=== PATIENT | female | born 1950 | race American Indian/Alaskan Native ===

== ENCOUNTER 2021-01-16 11:36 | Observation (INO) | payer MEDICARE ==
--- NOTE | 2021-01-16 12:48 | XRay Report ---
CHEST 1 VIEW INDICATION: cough. COMPARISON: None FINDINGS: Support devices: None. Heart: Within normal limits. Lungs/Pleura: No acute air space or interstitial disease. Additional findings: None. IMPRESSION: No acute findings. Signer Name: Maldonado Bowers Jr, MD Signed: 01/16/2021 12:44 PM Workstation Name: [id number]
[2021-01-16 12:58] LABS: Mucus,Urine FEW /HPF
[2021-01-16 13:10] LABS: Bilirubin,Urine NEG (Negative); Blood,Urine SM (Negative); Color,Urine Yellow (Yellow)
[2021-01-16 13:15] LABS: Basophils % (Auto) 0.6 % (0.0-1.8); Hematocrit 38.8 % (30.3-42.9); Lymphocytes # (Auto) 0.4 K/mm3 (1.2-5.4); Lymphocytes % (Auto) 5.6 % (13.4-35.0); Mean Corpuscular HGB Conc 33 % (30-34); Mean Corpuscular Volume 86 fl (79-97); Monocytes # (Auto) 0.5 K/mm3 (0.0-0.8); Monocytes % (Auto) 7.6 % (0.0-7.3); Platelet Count 156 K/mm3 (140-440); Red Blood Count 4.51 M/mm3 (3.65-5.03); Red Cell Distribution Width 13.7 % (13.2-15.2)
--- NOTE | 2021-01-16 13:35 | Emergency Department Report ---
ED General Adult HPI - General Chief complaint: Upper Respiratory Infection Stated complaint: BODY ACHES Time Seen by Provider: 01/16/21 12:03 Source: EMS Mode of arrival: Stretcher Limitations: No Limitations - History of Present Illness Initial comments: 70-year-old female, history of hypertension, diabetes, presents to ED with flulike illness. Patient reports 1 week history of body aches, cough, fever, nausea and vomiting, loss of smell and taste. Patient reports she had a brief episode of shortness of breath last night which has resolved. Patient has not been tested for COVID-19. Patient has no known contacts with anyone who is tested positive for COVID-19. However, patient states she lives with her daughter and her daughter has been having body aches as well. Patient has not had her Covid vaccine yet. -: week(s) (1) Severity scale (0 -10): 10 Quality: aching Consistency: constant Improves with: none Worsens with: none Associated Symptoms: cough, fever/chills, nausea/vomiting, shortness of breath, weakness. denies: chest pain - Related Data Home Medications Medication Instructions Recorded Confirmed Last Taken Lisinopril/Hydrochlorothiazide 1 tab PO QDAY 12/27/13 01/16/21 Unknown [Zestoretic 20-12.5 mg] Meloxicam 7.5 mg PO QDAY 12/27/13 01/16/21 Unknown Pantoprazole [Protonix TAB] 40 mg PO QDAY 12/27/13 01/16/21 Unknown amLODIPine 5 mg PO DAILY 12/27/13 01/16/21 Unknown atenoloL [Tenormin] 50 mg PO DAILY 12/27/13 01/16/21 Unknown AtorvaSTATin [Lipitor] 20 mg PO QHS 01/16/21 01/16/21 Unknown Metformin HCl [Glucophage] 1,000 mg PO DAILY 01/16/21 01/16/21 Unknown tiZANidine [Zanaflex 4mg TAB] 4 mg PO BID 01/16/21 01/16/21 Unknown traMADoL [Ultram] 50 mg PO DAILY 01/16/21 01/16/21 Unknown Allergies Allergy/AdvReac Type Severity Reaction Status Date / Time No Known Allergies Allergy Verified 01/16/21 12:17 ED Review of Systems ROS: Stated complaint: BODY ACHES Other details as noted in HPI Comment: All other systems reviewed and negative Constitutional: chills, fever Respiratory: cough Cardiovascular: denies: chest pain Gastrointestinal: nausea, vomiting. denies: diarrhea Musculoskeletal: myalgia ED Past Medical Hx - Past Medical History Hx Hypertension: Yes Hx Diabetes: Yes Additional medical history: hernia, high cholesterol - Surgical History Additional Surgical History: abdominal surgery - Social History Smoking Status: Never Smoker - Medications Home Medications: Home Medications Medication Instructions Recorded Confirmed Last Taken Type Lisinopril/Hydrochlorothiazide 1 tab PO QDAY 12/27/13 01/16/21 Unknown History [Zestoretic 20-12.5 mg] Meloxicam 7.5 mg PO QDAY 12/27/13 01/16/21 Unknown History Pantoprazole [Protonix TAB] 40 mg PO QDAY 12/27/13 01/16/21 Unknown History amLODIPine 5 mg PO DAILY 12/27/13 01/16/21 Unknown History atenoloL [Tenormin] 50 mg PO DAILY 12/27/13 01/16/21 Unknown History AtorvaSTATin [Lipitor] 20 mg PO QHS 01/16/21 01/16/21 Unknown History Metformin HCl [Glucophage] 1,000 mg PO DAILY 01/16/21 01/16/21 Unknown History tiZANidine [Zanaflex 4mg TAB] 4 mg PO BID 01/16/21 01/16/21 Unknown History traMADoL [Ultram] 50 mg PO DAILY 01/16/21 01/16/21 Unknown History ED Physical Exam - General Limitations: No Limitations General appearance: alert, in no apparent distress - Head Head exam: Present: atraumatic, normocephalic - Eye Eye exam: Present: normal appearance, EOMI - ENT ENT exam: Present: mucous membranes moist - Neck Neck exam: Present: normal inspection - Respiratory Respiratory exam: Present: normal lung sounds bilaterally. Absent: respiratory distress - Cardiovascular Cardiovascular Exam: Present: regular rate, normal rhythm - GI/Abdominal GI/Abdominal exam: Present: soft. Absent: distended, tenderness - Extremities Exam Extremities exam: Present: normal inspection - Neurological Exam Neurological exam: Present: alert, oriented X3 - Psychiatric Psychiatric exam: Present: normal affect, normal mood - Skin Skin exam: Present: warm, dry, intact, normal color ED Course Vital Signs 01/16/21 01/16/21 01/16/21 12:05 12:13 12:51 Temperature 99.9 F H Pulse Rate 77 82 Respiratory 16 16 18 Rate Blood Pressure 132/80 131/74 [Left] O2 Sat by Pulse 95 98 96 Oximetry 01/16/21 01/16/21 13:35 14:40 Temperature Pulse Rate 79 82 Respiratory 18 18 Rate Blood Pressure 118/72 121/67 [Left] O2 Sat by Pulse 95 95 Oximetry ED Medical Decision Making - Lab Data Result diagrams: 01/17/21 07:07 01/17/21 07:07 - Radiology Data Radiology results: report reviewed, image reviewed - Medical Decision Making 70-year-old female presents to ED with flulike illness, including nausea and vomiting. Patient has not been tested for COVID-19. Reports sick contact at home. Chest x-ray is negative. Labs show hyponatremia with sodium level of 129. IV fluids given. Patient will be admitted by hospitalist, Dr. Hope, for further management. - Differential Diagnosis COVID-19, electrolyte abnormality, pneumonia, UTI Critical care attestation.: If time is entered above; I have spent that time in minutes in the direct care of this critically ill patient, excluding procedure time. ED Disposition Clinical Impression: Suspected 2019 novel coronavirus infection, Hyponatremia Disposition: [id number] OP ADMIT IP TO THIS HOSP Is pt being admited?: Yes Condition: Stable
[2021-01-16 13:41] LABS: Blood Urea Nitrogen 17 mg/dL (7-17); Calcium 8.6 mg/dL (8.4-10.2); Hemolysis Index 23
[2021-01-16 13:42] LABS: C-Reactive Protein 11.5 mg/dL (0.00-1.30)
[2021-01-16 13:44] LABS: BUN/Creatinine Ratio 28
[2021-01-16 14:25] LABS: Alanine Aminotransferase 16 units/L (7-56); Albumin 3.4 g/dL (3.9-5)
[2021-01-16 14:26] LABS: Bilirubin,Direct < 0.2 mg/dL (0-0.2)
[2021-01-16] MEDS ORDERED: SODIUM CHLORIDE 0.9% 1000 ML 1,000 ML IV ONE (14:27)
--- NOTE | 2021-01-16 14:42 | History and Physical Report ---
History of Present Illness Chief complaint: I feel sick History of present illness: 70 YO Female with HTN, DM, GERD, HLD, OA presents to ED for evaluation. Pt reports "I feel bad". Patient states that she has experienced body aches, dry cough, nausea, several episodes of vomiting, loss of sense of smell, loss of sense of taste, shortness of breath, subjective fever over the past 1 week with persistent symptoms over the same timeframe. EMS notified and upon arrival the patient was found to be in distress and subsequently transported to [facility] for further care and evaluation of the aforementioned symptoms. The patient was seen and evaluated in the emergency department. All lab and imaging studies reviewed. Patient complained of shortness of breath and was found to have a pulse oximetry in the 90s however the patient underwent a 6-minute walk on room air and was found to have dyspnea with increased use of accessory muscles to breathe. The patient was found to have a pulse oximetry of 89% which is consist ent with acute hypoxemic respiratory failure. Patient also found to have urinary tract infection, hyponatremia. Patient admitted to medical floor and initiated on coronavirus protocol. Patient denies chills, chest pain, palpitations, skin rash, trauma, falls. Patient reports recent ill contact with her daughter who has similar symptoms. No prior admission for review. All medication listed at time of admission has been reconciled. Advanced care planning conducted in ED. Past History Past Medical History: arthritis, diabetes, GERD, hypertension, other (See HPI) Past Surgical History: bowel surgery, Other Social history: . denies: smoking, alcohol abuse Family history: diabetes, hypertension Medications and Allergies Allergies Allergy/AdvReac Type Severity Reaction Status Date / Time No Known Allergies Allergy Verified 01/16/21 12:17 Home Medications Medication Instructions Recorded Confirmed Last Taken Type Lisinopril/Hydrochlorothiazide 1 tab PO QDAY 12/27/13 01/16/21 Unknown History [Zestoretic 20-12.5 mg] Meloxicam 7.5 mg PO QDAY 12/27/13 01/16/21 Unknown History Pantoprazole [Protonix TAB] 40 mg PO QDAY 12/27/13 01/16/21 Unknown History amLODIPine 5 mg PO DAILY 12/27/13 01/16/21 Unknown History atenoloL [Tenormin] 50 mg PO DAILY 12/27/13 01/16/21 Unknown History AtorvaSTATin [Lipitor] 20 mg PO QHS 01/16/21 01/16/21 Unknown History tiZANidine [Zanaflex 4mg TAB] 4 mg PO BID 01/16/21 01/16/21 Unknown History traMADoL [Ultram] 50 mg PO DAILY 01/16/21 01/16/21 Unknown History Active Meds: Active Medications Sodium Chloride (Nacl 0.9% 1000 Ml) 1,000 mls @ 999 mls/hr IV BOLUS ONE Stop: 01/16/21 15:27 Last Admin: 01/16/21 14:33 Dose: 999 mls/hr Documented by: Review of Systems Constitutional: fever, fatigue, weakness, malaise Ears, nose, mouth and throat: other (Loss of sense of smell, loss of sense of taste,), no ear pain, no ear discharge, no tinnitis, no decreased hearing, no nose pain, no nasal congestion Breasts: no change in shape, no swelling, no mass Cardiovascular: no chest pain, no orthopnea, no palpitations, no rapid/irregular heart beat, no edema, no syncope Respiratory: cough, shortness of breath, no wheezing, no pleurisy, no pain Gastrointestinal: nausea, vomiting, no abdominal pain, no diarrhea, no constipation, no change in bowel habits Genitourinary Female: no pelvic pain, no flank pain, no dysuria, no urinary frequency, no urgency Rectal: no pain, no incontinence, no bleeding Musculoskeletal: no neck stiffness, no neck pain, no shooting arm pain, no arm numbness/tingling, no low back pain Integumentary: no rash, no pruritis, no redness, no sores, no wounds Neurological: no transient paralysis, no paralysis, no parathesias, no numbness, no tingling, no syncope Psychiatric: no anxiety, no memory loss, no sleep disturbances, no insomnia, no change in libido Endocrine: no cold intolerance, no heat intolerance, no polyphagia, no excessive thirst, no polydipsia, no polyuria, no nocturia, no excessive sweating Hematologic/Lymphatic: no easy bruising, no easy bleeding, no lymphadenopathy Allergic/Immunologic: no urticaria, no allergic rhinitis, no persistent infections, no anaphylaxis Exam - Constitutional Vitals: Temp Pulse Resp BP Pulse Ox 99.9 F H 82 18 121/67 95 01/16/21 12:05 01/16/21 14:40 01/16/21 14:40 01/16/21 14:40 01/16/21 14:40 General appearance: Present: mild distress - EENT Eyes: Present: PERRL ENT: hearing intact, clear oral mucosa - Neck Neck: Present: supple, normal ROM - Respiratory Respiratory effort: labored, stridor Respiratory: bilateral: diminished, rhonchi - Cardiovascular Heart Sounds: Present: S1 & S2. Absent: rub, click - Extremities Extremities: pulses symmetrical, No edema Peripheral Pulses: within normal limits - Abdominal General gastrointestinal: Present: soft, non-tender, non-distended, normal bowel sounds Female genitourinary: Present: normal - Integumentary Integumentary: Present: clear, warm, dry - Musculoskeletal Musculoskeletal: generalized weakness - Psychiatric Psychiatric: appropriate mood/affect, intact judgment & insight - Neurologic Neurologic: CNII-XII intact, moves all extremities Results - Labs CBC & Chem 7: 01/16/21 12:35 01/16/21 12:35 Labs: Abnormal lab results 01/16/21 01/16/21 01/16/21 Range/Units 12:35 12:35 12:35 Lymph % (Auto) 5.6 L (13.4-35.0) % [place] % (Auto) 7.6 H (0.0-7.3) % Lymph # (Auto) 0.4 L (1.2-5.4) K/mm3 Seg Neutrophils % 86.2 H (40.0-70.0) % D-Dimer (0-234) ng/mlDDU Sodium 129 L (137-145) mmol/L Chloride 93.1 L (98-107) mmol/L Glucose 128 H (65-100) mg/dL Ferritin (10.0-200.0) ng/mL Lactate Dehydrogenase (91-180) units/L C-Reactive Protein (0.00-1.30) mg/dL Albumin 3.4 L (3.9-5) g/dL Urine WBC (Auto) (0.0-6.0) /HPF 01/16/21 01/16/21 01/16/21 Range/Units 12:35 12:35 12:35 Lymph % (Auto) (13.4-35.0) % [place] % (Auto) (0.0-7.3) % Lymph # (Auto) (1.2-5.4) K/mm3 Seg Neutrophils % (40.0-70.0) % D-Dimer 538.29 H (0-234) ng/mlDDU Sodium (137-145) mmol/L Chloride (98-107) mmol/L Glucose (65-100) mg/dL Ferritin 578.2 H (10.0-200.0) ng/mL Lactate Dehydrogenase (91-180) units/L C-Reactive Protein (0.00-1.30) mg/dL Albumin (3.9-5) g/dL Urine WBC (Auto) 7.0 H (0.0-6.0) /HPF 01/16/21 Range/Units 12:35 Lymph % (Auto) (13.4-35.0) % [place] % (Auto) (0.0-7.3) % Lymph # (Auto) (1.2-5.4) K/mm3 Seg Neutrophils % (40.0-70.0) % D-Dimer (0-234) ng/mlDDU Sodium (137-145) mmol/L Chloride (98-107) mmol/L Glucose 126 H (65-100) mg/dL Ferritin (10.0-200.0) ng/mL Lactate Dehydrogenase 362 H (91-180) units/L C-Reactive Protein 11.50 H (0.00-1.30) mg/dL Albumin (3.9-5) g/dL Urine WBC (Auto) (0.0-6.0) /HPF Assessment and Plan - Patient Problems (1) Acute hypoxemic respiratory failure Current Visit: Yes Status: Acute Plan to address problem: Supplemental oxygen, pulse oximetry, nebulizer therapy, chest x-ray, prone positioning while in bed, pulmonary toilet (2) Suspected 2019 novel coronavirus infection Current Visit: No Status: Acute Plan to address problem: Coronavirus protocol: Contact precautions, isolation precautions, prone positioning while in bed, IV steroid therapy, IV antibiotic therapy, prophylactic anticoagulation, vitamin C therapy vitamin D therapy is in therapy, (3) UTI (urinary tract infection) Current Visit: Yes Status: Acute Qualifiers: Encounter type: initial encounter Plan to address problem: IV antibiotic therapy, supportive care. (4) HTN (hypertension) Current Visit: Yes Status: Acute Qualifiers: Hypertension type: essential hypertension Qualified Code(s): I10 - Essential (primary) hypertension Plan to address problem: Monitor blood pressure every shift, continue medical management (5) Diabetes Current Visit: Yes Status: Acute Plan to address problem: Sliding-scale insulin therapy, Accu-Chek, consistent carbohydrate diet, hypoglycemia protocol. (6) GERD (gastroesophageal reflux disease) Current Visit: Yes Status: Acute Qualifiers: Esophagitis presence: without esophagitis Qualified Code(s): K21.9 - Gastro-esophageal reflux disease without esophagitis Plan to address problem: PPI therapy, supportive care (7) DVT prophylaxis Current Visit: Yes Status: Acute Plan to address problem: SCD to bilateral lower extremities while in bed, prophylactic anticoagulation (8) ACP (advance care planning) Current Visit: Yes Status: Acute Plan to address problem: Disease education conducted, care plan discussed, prognosis discussed, diagnosis discussed, patient knowledges understanding agree with care plan, +30 minutes.
[2021-01-16] MEDS ORDERED: ONDANSETRON 4 MG/2 ML INJ IV PRN (14:48)
[2021-01-16] MEDS ORDERED: ALBUTEROL 2.5 MG/3 ML NEBU IH PRN (14:48)
[2021-01-16] MEDS: cefTRIAXone/NS 2 GM/100 ML 2 GM/100 ML BAG IV SCH (15:32)
[2021-01-16] MEDS ORDERED: AZITHROMYCIN/NS 500 MG/250 ML 500 MG/250 ML BAG IV SCH ×2 (16:00→20:00)
[2021-01-16] MEDS ORDERED: DEXTROSE 50% IN WATER (25GM) 50 ML SYRINGE IV PRN (17:13)
[2021-01-16] MEDS: methylPREDNISolone Sod Succinate 40 MG/1 ML INJ IV SCH (22:31)
[2021-01-16] MEDS: ACETAMINOPHEN 325 MG TAB PO PRN (22:31)
[2021-01-16] MEDS: HEPARIN 5,000 UNIT/1 ML VIAL SUB-Q SCH (22:32)
[2021-01-16] MEDS: ASCORBIC ACID 500 MG TAB PO SCH (22:32)
[2021-01-16] MEDS: tiZANidine TAB 4 MG TAB PO SCH (22:32)
[2021-01-16] MEDS: ZINC SULFATE 220 MG CAP PO SCH (22:33)
[2021-01-16] MEDS: INSULIN LISPRO 100 UNIT/ML SUB-Q SCH (22:34)
[2021-01-17] MEDS: methylPREDNISolone Sod Succinate 40 MG/1 ML INJ IV SCH ×3 (06:13→15:08)
[2021-01-17 08:13] LABS: BUN/Creatinine Ratio 27; Blood Urea Nitrogen 16 mg/dL (7-17); Calcium 8.8 mg/dL (8.4-10.2); Hemolysis Index 1
[2021-01-17 08:16] LABS: Basophils % (Auto) 0.5 % (0.0-1.8); Hematocrit 41.2 % (30.3-42.9); Hemoglobin 13.5 gm/dl (10.1-14.3); Lymphocytes # (Auto) 0.5 K/mm3 (1.2-5.4); Lymphocytes % (Auto) 9.1 % (13.4-35.0); Mean Corpuscular HGB Conc 33 % (30-34); Mean Corpuscular Volume 87 fl (79-97); Monocytes # (Auto) 0.2 K/mm3 (0.0-0.8); Monocytes % (Auto) 3.4 % (0.0-7.3); Platelet Count 172 K/mm3 (140-440); Red Blood Count 4.76 M/mm3 (3.65-5.03); Red Cell Distribution Width 13.6 % (13.2-15.2)
[2021-01-17] MEDS: INSULIN LISPRO 100 UNIT/ML SUB-Q SCH ×4 (08:43→22:31)
[2021-01-17] MEDS ORDERED: NON-FORMULARY EACH (Lisinopril/Hydrochlorothiazide [Zestoretic 20-12.5 Mg] 1 EACH Tablet) PO SCH (10:00)
[2021-01-17] MEDS: atenoloL 50 MG TAB PO SCH (10:08)
[2021-01-17] MEDS: CHOLECALCIFEROL (VIT D3) 1000 UNIT (25 mcg) TAB PO SCH (10:09)
[2021-01-17] MEDS: ASCORBIC ACID 500 MG TAB PO SCH ×2 (10:10→22:30)
[2021-01-17] MEDS: hydroCHLOROthiazide 12.5 MG CAP PO SCH (10:10)
[2021-01-17] MEDS: LISINOPRIL 20 MG TAB PO SCH (10:10)
[2021-01-17] MEDS: ZINC SULFATE 220 MG CAP PO SCH ×2 (10:10→22:30)
[2021-01-17] MEDS: amLODIPine 5 MG TAB PO SCH (10:10)
[2021-01-17] MEDS: tiZANidine TAB 4 MG TAB PO SCH ×2 (10:10→22:30)
[2021-01-17] MEDS: PANTOPRAZOLE 40 MG TAB PO SCH (10:10)
[2021-01-17] MEDS: HEPARIN 5,000 UNIT/1 ML VIAL SUB-Q SCH ×2 (10:10→22:29)
--- NOTE | 2021-01-17 13:28 | Progress Note ---
Assessment and Plan Assessment and plan: #Suspected COVID-19 infection Patient was reportedly hypoxic in the ER. Patient seen breathing in room air this AM. Will need to get a walk test prior to discharge Continue steroids Awaiting COVID-19 test Vitamin C and zinc Discontinued antibiotics as procalcitonin is negative #Diabetes mellitus Continue Metformin Patient refuses insulin and frequent fingersticks #Hypertension Continue blood pressure medication #GERD PPI #No UTI as previously thought. Procalcitonin negative History Interval history: Patient seen and examined at bedside this morning Has no complaints Not on oxygen Patient apparently desaturated in the ED. COVID-19 test pending Hospitalist Physical - Physical exam Narrative exam: VITAL SIGNS: Reviewed. GENERAL: Awake HEAD: No signs of head trauma. EYES: Pupils are equal. Extraocular motions intact. MOUTH: Oropharynx is normal. NECK: No adenopathy, no JVD. CHEST: Chest with diminished breath sounds bilaterally. No wheezes, rales, or rhonchi. CARDIAC: normal S1 and S2, without murmurs, gallops, or rubs. ABDOMEN: Soft, non tender and non distended. No rebound or guarding, and no masses palpated. Bowel Sounds normal. MUSCULOSKELETAL: No edema NEUROLOGIC EXAM: Alert and oriented x3. No focal neurologic deficits SKIN: No obvious lesions - Constitutional Vitals: Temp Pulse Resp BP Pulse Ox 97.7 F 73 18 111/66 94 01/17/21 12:43 01/17/21 12:43 01/17/21 12:43 01/17/21 12:43 01/17/21 12:43 Results - Labs CBC & Chem 7: 01/17/21 07:07 01/17/21 07:07 Labs: Laboratory Last Values WBC 5.9 K/mm3 (4.5-11.0) 01/17/21 07:07 RBC 4.76 M/mm3 (3.65-5.03) 01/17/21 07:07 Hgb 13.5 gm/dl (10.1-14.3) 01/17/21 07:07 Hct 41.2 % (30.3-42.9) 01/17/21 07:07 MCV 87 fl (79-97) 01/17/21 07:07 MCH 28 pg (28-32) 01/17/21 07:07 MCHC 33 % (30-34) 01/17/21 07:07 RDW 13.6 % (13.2-15.2) 01/17/21 07:07 Plt Count 172 K/mm3 (140-440) 01/17/21 07:07 Lymph % (Auto) 9.1 % (13.4-35.0) L 01/17/21 07:07 [place] % (Auto) 3.4 % (0.0-7.3) 01/17/21 07:07 Eos % (Auto) 0.0 % (0.0-4.3) 01/17/21 07:07 Baso % (Auto) 0.5 % (0.0-1.8) 01/17/21 07:07 Lymph # (Auto) 0.5 K/mm3 (1.2-5.4) L 01/17/21 07:07 [place] # (Auto) 0.2 K/mm3 (0.0-0.8) 01/17/21 07:07 Eos # (Auto) 0.0 K/mm3 (0.0-0.4) 01/17/21 07:07 Baso # (Auto) 0.0 K/mm3 (0.0-0.1) 01/17/21 07:07 Seg Neutrophils % 87.0 % (40.0-70.0) H 01/17/21 07:07 Seg Neutrophils # 5.2 K/mm3 (1.8-7.7) 01/17/21 07:07 D-Dimer 538.29 ng/mlDDU (0-234) H 01/16/21 12:35 Sodium 137 mmol/L (137-145) D 01/17/21 07:07 Potassium 3.9 mmol/L (3.6-5.0) 01/17/21 07:07 Chloride 100.6 mmol/L (98-107) 01/17/21 07:07 Carbon Dioxide 26 mmol/L (22-30) 01/17/21 07:07 Anion Gap 14 mmol/L 01/17/21 07:07 BUN 16 mg/dL (7-17) 01/17/21 07:07 Creatinine 0.6 mg/dL (0.6-1.2) 01/17/21 07:07 Estimated GFR > 60 ml/min 01/17/21 07:07 BUN/Creatinine Ratio 27 % 01/17/21 07:07 Glucose 191 mg/dL (65-100) H 01/17/21 07:07 POC Glucose 234 mg/dL (70-105) H 01/17/21 11:19 Calcium 8.8 mg/dL (8.4-10.2) 01/17/21 07:07 Ferritin 578.2 ng/mL (10.0-200.0) H 01/16/21 12:35 Total Bilirubin 0.50 mg/dL (0.1-1.2) 01/16/21 12:35 Direct Bilirubin < 0.2 mg/dL (0-0.2) 01/16/21 12:35 Indirect Bilirubin 0.3 mg/dL 01/16/21 12:35 AST 32 units/L (5-40) 01/16/21 12:35 ALT 16 units/L (7-56) 01/16/21 12:35 Alkaline Phosphatase 52 units/L (35-129) 01/16/21 12:35 Lactate Dehydrogenase 362 units/L (91-180) H 01/16/21 12:35 C-Reactive Protein 11.50 mg/dL (0.00-1.30) H 01/16/21 12:35 Total Protein 6.8 g/dL (6.3-8.2) 01/16/21 12:35 Albumin 3.4 g/dL (3.9-5) L 01/16/21 12:35 Albumin/Globulin Ratio 1.0 % 01/16/21 12:35 Procalcitonin < 0.05 ng/mL (<0.15) 01/16/21 12:35 Urine Color Yellow (Yellow) 01/16/21 12:35 Urine Turbidity Slightly-cloudy (Clear) 01/16/21 12:35 Urine pH 5.0 (5.0-7.0) 01/16/21 12:35 Ur Specific [place] 1.019 (1.003-1.030) 01/16/21 12:35 Urine Protein 30 mg/dl mg/dL (Negative) 01/16/21 12:35 Urine Glucose (UA) Neg mg/dL (Negative) 01/16/21 12:35 Urine Ketones 20 mg/dL (Negative) 01/16/21 12:35 Urine Blood Sm (Negative) 01/16/21 12:35 Urine Nitrite Neg (Negative) 01/16/21 12:35 Ur Reducing Substances Not Reportable 01/16/21 12:35 Urine Bilirubin Neg (Negative) 01/16/21 12:35 Urine Ictotest Not Reportable 01/16/21 12:35 Urine Urobilinogen 2.0 mg/dL (<2.0) 01/16/21 12:35 Ur Leukocyte Esterase Tr (Negative) 01/16/21 12:35 Urine WBC (Auto) 7.0 /HPF (0.0-6.0) H 01/16/21 12:35 Urine RBC (Auto) 4.0 /HPF (0.0-6.0) 01/16/21 12:35 U Epithel Cells (Auto) 7.0 /HPF (0-13.0) 01/16/21 12:35 Urine Mucus Few /HPF 01/16/21 12:35 Microbiology: Microbiology 01/16/21 15:54 Peripheral/Venous Blood Culture - Preliminary Culture in Progress 01/16/21 15:57 Peripheral/Venous Blood Culture - Preliminary Culture in Progress Ariza/IV: Voiding Method Toilet Active Medications - Current Medications Current Medications: Generic Name Dose Route Start Last Admin Trade Name Freq PRN Reason Stop Dose Admin Acetaminophen 650 mg 01/16/21 14:48 01/16/21 22:31 Acetaminophen 325 Mg Tab PO 650 mg Q4H PRN Administration Pain MILD(1-3)/Fever >100.5/HILLIARD Albuterol 2.5 mg 01/16/21 14:48 Albuterol 2.5 Mg/3 Ml Nebu IH Q4HRT PRN Shortness Of Breath Amlodipine Besylate 5 mg 01/17/21 10:00 01/17/21 10:10 Amlodipine 5 Mg Tab PO 5 mg DAILY ADRIANA Administration Ascorbic Acid 500 mg 01/16/21 22:00 01/17/21 10:10 Ascorbic Acid 500 Mg Tab PO 500 mg BID ADRIANA Administration Atenolol 50 mg 01/17/21 10:00 01/17/21 10:08 Atenolol 50 Mg Tab PO 50 mg DAILY ADRIANA Administration Atorvastatin Calcium 20 mg 01/16/21 22:00 01/16/21 22:32 Atorvastatin 20 Mg Tab PO 20 mg QHS ADRIANA Administration Cholecalciferol 1,000 unit 01/17/21 10:00 01/17/21 10:09 Cholecalciferol (Vit D3) 1000 Unit (25 Mcg) Tab PO 1,000 unit QDAY ADRIANA Administration Dextrose 50 ml 01/16/21 17:13 Dextrose 50% In Water (25gm) 50 Ml Syringe IV Q30MIN PRN Hypoglycemia Protocol Heparin Sodium (Porcine) 5,000 unit 01/16/21 22:00 01/17/21 10:10 Heparin 5,000 Unit/1 Ml Vial SUB-Q Not Given Q12HR ADRIANA Hydrochlorothiazide 12.5 mg 01/17/21 10:00 01/17/21 10:10 Hydrochlorothiazide 12.5 Mg Cap PO 12.5 mg QDAY ADRIANA Administration Ceftriaxone Sodium 2 gm in 100 mls @ 200 mls/hr 01/16/21 15:00 01/16/21 15:32 Rocephin/Ns 2 Gm/100 Ml IV 200 mls/hr Q24H ADRIANA Administration Protocol Insulin Human Lispro 0 unit 01/16/21 22:00 01/17/21 12:54 Insulin Lispro 100 Unit/Ml SUB-Q Not Given ACHS ADRIANA Protocol Lisinopril 20 mg 01/17/21 10:00 01/17/21 10:10 Lisinopril 20 Mg Tab PO 20 mg QDAY ADRIANA Administration Methylprednisolone Sodium Succinate 40 mg 01/16/21 22:00 01/17/21 06:13 Methylprednisolone Sod Succinate 40 Mg/1 Ml Inj IV 40 mg Q8HR ADRIANA Administration Ondansetron HCl 4 mg 01/16/21 14:48 Ondansetron 4 Mg/2 Ml Inj IV Q8H PRN Nausea And Vomiting Pantoprazole Sodium 40 mg 01/17/21 10:00 01/17/21 10:10 Pantoprazole 40 Mg Tab PO 40 mg QDAY ADRIANA Administration Sodium Chloride 10 ml 01/16/21 22:00 01/17/21 10:10 Sodium Chloride 0.9% 10 Ml Flush Syringe IV 10 ml BID ADRIANA Administration Sodium Chloride 10 ml 01/16/21 14:48 Sodium Chloride 0.9% 10 Ml Flush Syringe IV PRN PRN LINE FLUSH Tizanidine HCl 4 mg 01/16/21 22:00 01/17/21 10:10 Tizanidine Tab 4 Mg Tab PO 4 mg BID ADRIANA Administration Zinc Sulfate 220 mg 01/16/21 22:00 01/17/21 10:10 Zinc Sulfate 220 Mg Cap PO 220 mg BID ADRIANA Administration
[2021-01-17] MEDS: cefTRIAXone/NS 2 GM/100 ML 2 GM/100 ML BAG IV SCH ×2 (14:45→15:08)
[2021-01-17] MEDS: glipiZIDE 5 MG TAB PO SCH (16:01)
[2021-01-17] MEDS ORDERED: AZITHROMYCIN 250 MG TAB PO SCH (18:00)
[2021-01-18] MEDS: INSULIN LISPRO 100 UNIT/ML SUB-Q SCH ×4 (08:16→23:25)
[2021-01-18] MEDS: tiZANidine TAB 4 MG TAB PO SCH ×2 (09:20→23:24)
[2021-01-18] MEDS: LISINOPRIL 20 MG TAB PO SCH (09:20)
[2021-01-18] MEDS: atenoloL 50 MG TAB PO SCH (09:20)
[2021-01-18] MEDS: ASCORBIC ACID 500 MG TAB PO SCH ×2 (09:20→23:25)
[2021-01-18] MEDS: ZINC SULFATE 220 MG CAP PO SCH ×2 (09:21→23:24)
[2021-01-18] MEDS: hydroCHLOROthiazide 12.5 MG CAP PO SCH (09:21)
[2021-01-18] MEDS: PANTOPRAZOLE 40 MG TAB PO SCH (09:22)
[2021-01-18] MEDS: amLODIPine 5 MG TAB PO SCH (09:22)
[2021-01-18] MEDS: DEXAMETHASONE 4 MG TAB PO SCH (09:23)
--- NOTE | 2021-01-18 09:30 | Discharge Summary ---
Providers - Providers Date of Admission: 01/17/21 11:19 Date of discharge: 01/18/21 Attending physician: IRIS VALDEZ 01/17/21 18:06 Physical Therapy Evaluation and Treat [CONS] Routine Comment: Reason For Exam: Assess for the need for home PT due to weakness Hospitalization Condition: Stable Hospital course: 70 YO Female with HTN, DM, GERD, HLD, OA presents to ED for evaluation. Pt reports "I feel bad". Patient states that she has experienced body aches, dry cough, nausea, several episodes of vomiting, loss of sense of smell, loss of sense of taste, shortness of breath, subjective fever over the past 1 week with persistent symptoms over the same timeframe. EMS notified and upon arrival the patient was found to be in distress and subsequently transported to [facility] for further care and evaluation of the aforementioned symptoms. The patient was seen and evaluated in the emergency department. All lab and imaging studies reviewed. Patient complained of shortness of breath and was found to have a pulse oximetry in the 90s however the patient underwent a 6-minute walk on room air and was found to have dyspnea with increased use of accessory muscles to breathe. The patient was found to have a pulse oximetry of 89% which is consistent with acute hypoxemic respiratory failure. Patient also found to have urinary tract infection, hyponatremia. Patient admitted to medical floor and initiated on coronavirus protocol. Patient denies chills, chest pain, palpitations, skin rash, trauma, falls. Patient reports recent ill contact with her daughter who has similar symptoms. No prior admission for review. All medication listed at time of admission has been reconciled. Advanced care planning conducted in ED. Hospital course Patient was started on steroids and oxygen supplementation. She does not need remdesivir as she was not hypoxic at rest. Procalcitonin was negative and antibiotics were discontinued. Her COVID-19 test performed was positive. Her labs have improved. Patient feels better due to hypoglycemia, have adjusted patient's oral hypoglycemic agents. She will follow up with her primary medical doctor in 1 to 2 weeks Disposition: - TO HOME OR SELFCARE Final Discharge Diagnosis (Prints w/discharge instructions): COVID -19 pna Time spent for discharge: 35 mins - Discharge Diagnoses (1) COVID-19 Status: Acute (2) HTN (hypertension) Status: Acute Qualifiers: Hypertension type: essential hypertension Qualified Code(s): I10 - Essential (primary) hypertension Core Measure Documentation - Palliative Care Palliative Care/ Comfort Measures: Not Applicable - Core Measures Any of the following diagnoses?: none Exam - Physical Exam Narrative exam: VITAL SIGNS: Reviewed. GENERAL: Awake HEAD: No signs of head trauma. EYES: Pupils are equal. Extraocular motions intact. MOUTH: Oropharynx is normal. NECK: No adenopathy, no JVD. CHEST: Chest with diminished breath sounds bilaterally. No wheezes, rales, or rhonchi. CARDIAC: normal S1 and S2, without murmurs, gallops, or rubs. ABDOMEN: Soft, non tender and non distended. No rebound or guarding, and no masses palpated. Bowel Sounds normal. MUSCULOSKELETAL: No edema NEUROLOGIC EXAM: Alert and oriented x3. No focal neurologic deficits SKIN: No obvious lesions - Constitutional Vitals: Temp Pulse Resp BP Pulse Ox 97.8 F 70 18 120/77 94 01/17/21 17:21 01/18/21 09:22 01/17/21 22:00 01/18/21 09:22 01/17/21 21:05 Plan Additional Instructions: Continue dexamethasone. Follow up with primary medical doctor in 1-2 weeks Follow up with: EBEN HOLLAND [Other] - 7 Days
--- NOTE | 2021-01-18 09:44 | Progress Note ---
Assessment and Plan Assessment and plan: #Dyspnea on exertion Oxygen saturation at rest is 91% ID consulted for evaluation of need for remdesivir #COVID-19 infection Patient was reportedly hypoxic in the ER with sats of 89% after a 6-minute walk test Dexamethasone Vitamin C and zinc ID consulted as patient may need remdesivir Trend inflammatory markers. #Diabetes mellitus Continue Metformin Added glipizide as patient refuses insulin. Continue to monitor blood glucose #Hypertension Continue blood pressure medication #GERD PPI #No UTI as previously thought. Procalcitonin negative #DVT prophylaxis-Lovenox History Interval history: 01/17. Patient seen and examined at bedside this morning. Has no complaints. Not on oxygen. Patient apparently desaturated in the ED. COVID-19 test pending. 01/18. Patient seen and examined at bedside this morning. COVID-19 test came out positive yesterday. Her oxygen saturation at rest is 91%. She has some dyspnea on exertion. ID consulted for evaluation for remdesivir. Hospitalist Physical - Physical exam Narrative exam: VITAL SIGNS: Reviewed. GENERAL: Awake HEAD: No signs of head trauma. EYES: Pupils are equal. Extraocular motions intact. MOUTH: Oropharynx is normal. NECK: No adenopathy, no JVD. CHEST: Chest with diminished breath sounds bilaterally. No wheezes, rales, or rhonchi. CARDIAC: normal S1 and S2, without murmurs, gallops, or rubs. ABDOMEN: Soft, non tender and non distended. No rebound or guarding, and no masses palpated. Bowel Sounds normal. MUSCULOSKELETAL: No edema NEUROLOGIC EXAM: Alert and oriented x3. No focal neurologic deficits SKIN: No obvious lesions - Constitutional Vitals: Temp Pulse Resp BP Pulse Ox 97.8 F 70 18 120/77 94 01/17/21 17:21 01/18/21 09:22 01/17/21 22:00 01/18/21 09:22 01/17/21 21:05 Results - Labs CBC & Chem 7: 01/17/21 07:07 01/17/21 07:07 Labs: Laboratory Last Values WBC 5.9 K/mm3 (4.5-11.0) 01/17/21 07:07 RBC 4.76 M/mm3 (3.65-5.03) 01/17/21 07:07 Hgb 13.5 gm/dl (10.1-14.3) 01/17/21 07:07 Hct 41.2 % (30.3-42.9) 01/17/21 07:07 MCV 87 fl (79-97) 01/17/21 07:07 MCH 28 pg (28-32) 01/17/21 07:07 MCHC 33 % (30-34) 01/17/21 07:07 RDW 13.6 % (13.2-15.2) 01/17/21 07:07 Plt Count 172 K/mm3 (140-440) 01/17/21 07:07 Lymph % (Auto) 9.1 % (13.4-35.0) L 01/17/21 07:07 Sunflower % (Auto) 3.4 % (0.0-7.3) 01/17/21 07:07 Eos % (Auto) 0.0 % (0.0-4.3) 01/17/21 07:07 Baso % (Auto) 0.5 % (0.0-1.8) 01/17/21 07:07 Lymph # (Auto) 0.5 K/mm3 (1.2-5.4) L 01/17/21 07:07 Sunflower # (Auto) 0.2 K/mm3 (0.0-0.8) 01/17/21 07:07 Eos # (Auto) 0.0 K/mm3 (0.0-0.4) 01/17/21 07:07 Baso # (Auto) 0.0 K/mm3 (0.0-0.1) 01/17/21 07:07 Seg Neutrophils % 87.0 % (40.0-70.0) H 01/17/21 07:07 Seg Neutrophils # 5.2 K/mm3 (1.8-7.7) 01/17/21 07:07 D-Dimer 538.29 ng/mlDDU (0-234) H 01/16/21 12:35 Sodium 137 mmol/L (137-145) D 01/17/21 07:07 Potassium 3.9 mmol/L (3.6-5.0) 01/17/21 07:07 Chloride 100.6 mmol/L (98-107) 01/17/21 07:07 Carbon Dioxide 26 mmol/L (22-30) 01/17/21 07:07 Anion Gap 14 mmol/L 01/17/21 07:07 BUN 16 mg/dL (7-17) 01/17/21 07:07 Creatinine 0.6 mg/dL (0.6-1.2) 01/17/21 07:07 Estimated GFR > 60 ml/min 01/17/21 07:07 BUN/Creatinine Ratio 27 % 01/17/21 07:07 Glucose 191 mg/dL (65-100) H 01/17/21 07:07 POC Glucose 131 mg/dL (70-105) H 01/17/21 23:00 Calcium 8.8 mg/dL (8.4-10.2) 01/17/21 07:07 Ferritin 578.2 ng/mL (10.0-200.0) H 01/16/21 12:35 Total Bilirubin 0.50 mg/dL (0.1-1.2) 01/16/21 12:35 Direct Bilirubin < 0.2 mg/dL (0-0.2) 01/16/21 12:35 Indirect Bilirubin 0.3 mg/dL 01/16/21 12:35 AST 32 units/L (5-40) 01/16/21 12:35 ALT 16 units/L (7-56) 01/16/21 12:35 Alkaline Phosphatase 52 units/L (35-129) 01/16/21 12:35 Lactate Dehydrogenase 362 units/L (91-180) H 01/16/21 12:35 C-Reactive Protein 11.50 mg/dL (0.00-1.30) H 01/16/21 12:35 Total Protein 6.8 g/dL (6.3-8.2) 01/16/21 12:35 Albumin 3.4 g/dL (3.9-5) L 01/16/21 12:35 Albumin/Globulin Ratio 1.0 % 01/16/21 12:35 Procalcitonin < 0.05 ng/mL (<0.15) 01/16/21 12:35 Urine Color Yellow (Yellow) 01/16/21 12:35 Urine Turbidity Slightly-cloudy (Clear) 01/16/21 12:35 Urine pH 5.0 (5.0-7.0) 01/16/21 12:35 Ur Specific Mcmillan 1.019 (1.003-1.030) 01/16/21 12:35 Urine Protein 30 mg/dl mg/dL (Negative) 01/16/21 12:35 Urine Glucose (UA) Neg mg/dL (Negative) 01/16/21 12:35 Urine Ketones 20 mg/dL (Negative) 01/16/21 12:35 Urine Blood Sm (Negative) 01/16/21 12:35 Urine Nitrite Neg (Negative) 01/16/21 12:35 Ur Reducing Substances Not Reportable 01/16/21 12:35 Urine Bilirubin Neg (Negative) 01/16/21 12:35 Urine Ictotest Not Reportable 01/16/21 12:35 Urine Urobilinogen 2.0 mg/dL (<2.0) 01/16/21 12:35 Ur Leukocyte Esterase Tr (Negative) 01/16/21 12:35 Urine WBC (Auto) 7.0 /HPF (0.0-6.0) H 01/16/21 12:35 Urine RBC (Auto) 4.0 /HPF (0.0-6.0) 01/16/21 12:35 U Epithel Cells (Auto) 7.0 /HPF (0-13.0) 01/16/21 12:35 Urine Mucus Few /HPF 01/16/21 12:35 Coronavirus (PCR) Positive (Negative) A 01/17/21 Unknown Microbiology: Microbiology 01/16/21 15:54 Peripheral/Venous Blood Culture - Preliminary NO GROWTH AFTER 24 HOURS 01/16/21 15:57 Peripheral/Venous Blood Culture - Preliminary NO GROWTH AFTER 24 HOURS Ariza/IV: Voiding Method Toilet Active Medications - Current Medications Current Medications: Generic Name Dose Route Start Last Admin Trade Name Freq PRN Reason Stop Dose Admin Acetaminophen 650 mg 01/16/21 14:48 01/16/21 22:31 Acetaminophen 325 Mg Tab PO 650 mg Q4H PRN Administration Pain MILD(1-3)/Fever >100.5/HILLIARD Albuterol 2.5 mg 01/16/21 14:48 Albuterol 2.5 Mg/3 Ml Nebu IH Q4HRT PRN Shortness Of Breath Amlodipine Besylate 5 mg 01/17/21 10:00 01/18/21 09:22 Amlodipine 5 Mg Tab PO 5 mg DAILY ADRIANA Administration Ascorbic Acid 500 mg 01/16/21 22:00 01/18/21 09:20 Ascorbic Acid 500 Mg Tab PO 500 mg BID ADRIANA Administration Atenolol 50 mg 01/17/21 10:00 01/18/21 09:20 Atenolol 50 Mg Tab PO 50 mg DAILY ADRIANA Administration Atorvastatin Calcium 20 mg 01/16/21 22:00 01/17/21 22:30 Atorvastatin 20 Mg Tab PO 20 mg QHS ADRIANA Administration Cholecalciferol 1,000 unit 01/17/21 10:00 01/17/21 10:09 Cholecalciferol (Vit D3) 1000 Unit (25 Mcg) Tab PO 1,000 unit QDAY ADRIANA Administration Dexamethasone 6 mg 01/18/21 10:00 01/18/21 09:23 Dexamethasone 4 Mg Tab PO 01/27/21 10:01 6 mg Q24HR ADRIANA Administration Dextrose 50 ml 01/16/21 17:13 Dextrose 50% In Water (25gm) 50 Ml Syringe IV Q30MIN PRN Hypoglycemia Protocol Glipizide 5 mg 01/17/21 17:00 01/17/21 16:01 Glipizide 5 Mg Tab PO 5 mg BIDDIAB ADRIANA Administration Heparin Sodium (Porcine) 5,000 unit 01/16/21 22:00 01/17/21 22:29 Heparin 5,000 Unit/1 Ml Vial SUB-Q 5,000 unit Q12HR ADRIANA Administration Hydrochlorothiazide 12.5 mg 01/17/21 10:00 01/18/21 09:21 Hydrochlorothiazide 12.5 Mg Cap PO 12.5 mg QDAY ADRIANA Administration Ceftriaxone Sodium 2 gm in 100 mls @ 200 mls/hr 01/16/21 15:00 01/17/21 15:08 Rocephin/Ns 2 Gm/100 Ml IV Not Given Q24H [facility] Protocol Insulin Human Lispro 0 unit 01/16/21 22:00 01/18/21 08:16 Insulin Lispro 100 Unit/Ml SUB-Q Not Given ACHS [facility] Protocol Lisinopril 20 mg 01/17/21 10:00 01/18/21 09:20 Lisinopril 20 Mg Tab PO 20 mg QDAY ADRIANA Administration Ondansetron HCl 4 mg 01/16/21 14:48 Ondansetron 4 Mg/2 Ml Inj IV Q8H PRN Nausea And Vomiting Pantoprazole Sodium 40 mg 01/17/21 10:00 01/18/21 09:22 Pantoprazole 40 Mg Tab PO 40 mg QDAY ADRIANA Administration Sodium Chloride 10 ml 01/16/21 22:00 01/17/21 22:31 Sodium Chloride 0.9% 10 Ml Flush Syringe IV 10 ml BID ADRIANA Administration Sodium Chloride 10 ml 01/16/21 14:48 Sodium Chloride 0.9% 10 Ml Flush Syringe IV PRN PRN LINE FLUSH Tizanidine HCl 4 mg 01/16/21 22:00 01/18/21 09:20 Tizanidine Tab 4 Mg Tab PO 4 mg BID ADRIANA Administration Zinc Sulfate 220 mg 01/16/21 22:00 01/18/21 09:21 Zinc Sulfate 220 Mg Cap PO 220 mg BID ADRIANA Administration
[2021-01-18] MEDS: CHOLECALCIFEROL (VIT D3) 1000 UNIT (25 mcg) TAB PO SCH (10:37)
[2021-01-18] MEDS: glipiZIDE 5 MG TAB PO SCH ×2 (10:37→17:00)
[2021-01-18 10:43] LABS: C-Reactive Protein 5.3 mg/dL (0.00-1.30)
--- NOTE | 2021-01-18 12:48 | Consultation ---
History of Present Illness - Reason for Consult Consult date: 01/18/21 COVID-19 pneumonia Requesting physician: IRIS VALDEZ - History of Present Illness 71 years old female with history of hypertension, diabetes mellitus, GERD, hyperlipidemia, osteoarthritis, admitted 01/16/2021 secondary to a week history of generalized malaise, body aches, cough, nausea, loss of sense of smell several episodes of vomiting, and shortness of breath. Patient called EMS respi ratory distress. On arrival, temperature 99.9, HR 77, RR 16, O2 sat 95%, BP 132/80. Initial WBC 7.2. Hemoglobin 13. Platelets 156. D-dimer 538--> 364. Sodium 129. Ferritin 578--> 756. Urinalysis negative. Procalcitonin<0.05. Chest x-ray unremarkable. Patient currently on room air, sats over 91%. Review of Systems: reviewed ED and H&P notes. Review of system deferred to minimize COVID-19 transmission. Past History Past Medical History: arthritis, diabetes, GERD, hypertension, other (See HPI) Past Surgical History: bowel surgery, Other Social history: . denies: smoking, alcohol abuse Family history: diabetes, hypertension Medications and Allergies Allergies Allergy/AdvReac Type Severity Reaction Status Date / Time No Known Allergies Allergy Verified 01/16/21 12:17 Home Medications Medication Instructions Recorded Confirmed Last Taken Type Lisinopril/Hydrochlorothiazide 1 tab PO QDAY 12/27/13 01/16/21 Unknown History [Zestoretic 20-12.5 mg] Meloxicam 7.5 mg PO QDAY 12/27/13 01/16/21 Unknown History Pantoprazole [Protonix TAB] 40 mg PO QDAY 12/27/13 01/16/21 Unknown History amLODIPine 5 mg PO DAILY 12/27/13 01/16/21 Unknown History atenoloL [Tenormin] 50 mg PO DAILY 12/27/13 01/16/21 Unknown History AtorvaSTATin [Lipitor] 20 mg PO QHS 01/16/21 01/16/21 Unknown History Metformin HCl [Glucophage] 1,000 mg PO DAILY 01/16/21 01/16/21 Unknown History tiZANidine [Zanaflex 4mg TAB] 4 mg PO BID 01/16/21 01/16/21 Unknown History traMADoL [Ultram] 50 mg PO DAILY 01/16/21 01/16/21 Unknown History Active Meds: Active Medications Acetaminophen (Acetaminophen 325 Mg Tab) 650 mg PO Q4H PRN PRN Reason: Pain MILD(1-3)/Fever >100.5/HILLIARD Last Admin: 01/16/21 22:31 Dose: 650 mg Documented by: Albuterol (Albuterol 2.5 Mg/3 Ml Nebu) 2.5 mg IH Q4HRT PRN PRN Reason: Shortness Of Breath Amlodipine Besylate (Amlodipine 5 Mg Tab) 5 mg PO DAILY [facility] Last Admin: 01/18/21 09:22 Dose: 5 mg Documented by: Ascorbic Acid (Ascorbic Acid 500 Mg Tab) 500 mg PO BID [facility] Last Admin: 01/18/21 09:20 Dose: 500 mg Documented by: Atenolol (Atenolol 50 Mg Tab) 50 mg PO DAILY [facility] Last Admin: 01/18/21 09:20 Dose: 50 mg Documented by: Atorvastatin Calcium (Atorvastatin 20 Mg Tab) 20 mg PO QHS [facility] Last Admin: 01/17/21 22:30 Dose: 20 mg Documented by: Cholecalciferol (Cholecalciferol (Vit D3) 1000 Unit (25 Mcg) Tab) 1,000 unit PO QDAY [facility] Last Admin: 01/18/21 10:37 Dose: 1,000 unit Documented by: Dexamethasone (Dexamethasone 4 Mg Tab) 6 mg PO Q24HR [facility] Stop: 01/27/21 10:01 Last Admin: 01/18/21 09:23 Dose: 6 mg Documented by: Dextrose (Dextrose 50% In Water (25gm) 50 Ml Syringe) 50 ml IV Q30MIN PRN; Protocol PRN Reason: Hypoglycemia Enoxaparin Sodium (Enoxaparin 40 Mg/0.4 Ml Inj) 40 mg SUB-Q QDAY@2200 [facility]; Protocol Glipizide (Glipizide 5 Mg Tab) 5 mg PO BIDDIAB [facility] Last Admin: 01/18/21 10:37 Dose: 5 mg Documented by: Hydrochlorothiazide (Hydrochlorothiazide 12.5 Mg Cap) 12.5 mg PO QDAY [facility] Last Admin: 01/18/21 09:21 Dose: 12.5 mg Documented by: Ceftriaxone Sodium (Rocephin/Ns 2 Gm/100 Ml) 2 gm in 100 mls @ 200 mls/hr IV Q24H [facility]; Protocol Last Admin: 01/17/21 15:08 Dose: Not Given Documented by: Insulin Human Lispro (Insulin Lispro 100 Unit/Ml) 0 unit SUB-Q ACHS [facility]; Protocol Last Admin: 01/18/21 11:55 Dose: Not Given Documented by: Lisinopril (Lisinopril 20 Mg Tab) 20 mg PO QDAY [facility] Last Admin: 01/18/21 09:20 Dose: 20 mg Documented by: Ondansetron HCl (Ondansetron 4 Mg/2 Ml Inj) 4 mg IV Q8H PRN PRN Reason: Nausea And Vomiting Pantoprazole Sodium (Pantoprazole 40 Mg Tab) 40 mg PO QDAY [facility] Last Admin: 01/18/21 09:22 Dose: 40 mg Documented by: Sodium Chloride (Sodium Chloride 0.9% 10 Ml Flush Syringe) 10 ml IV BID [facility] Last Admin: 01/18/21 10:09 Dose: 10 ml Documented by: Sodium Chloride (Sodium Chloride 0.9% 10 Ml Flush Syringe) 10 ml IV PRN PRN PRN Reason: LINE FLUSH Tizanidine HCl (Tizanidine Tab 4 Mg Tab) 4 mg PO BID [facility] Last Admin: 01/18/21 09:20 Dose: 4 mg Documented by: Zinc Sulfate (Zinc Sulfate 220 Mg Cap) 220 mg PO BID [facility] Last Admin: 01/18/21 09:21 Dose: 220 mg Documented by: Physical Examination - Physical Exam Narrative exam: Physical exam deferred to minimize COVID-19 transmission during pandemic. ER and internal medicine physical examination notes reviewed. - Constitutional Vitals: Vital Signs Temp Pulse Resp BP Pulse Ox 97.8 F 70 18 120/77 94 01/17/21 17:21 01/18/21 09:22 01/17/21 22:00 01/18/21 09:22 01/17/21 21:05 Temperature -Last 24 Hours Temperature 97.8 F Results - Labs CBC & Chem 7: 01/17/21 07:07 01/17/21 07:07 Labs: Abnormal lab results 01/17/21 01/17/21 01/17/21 Range/Units 11:19 13:56 16:16 D-Dimer (0-234) ng/mlDDU POC Glucose 234 H 251 H 220 H (70-105) mg/dL Ferritin (10.0-200.0) ng/mL Lactate Dehydrogenase (91-180) units/L C-Reactive Protein (0.00-1.30) mg/dL Coronavirus (PCR) (Negative) 01/17/21 01/17/21 01/18/21 Range/Units 23:00 Unknown 08:03 D-Dimer (0-234) ng/mlDDU POC Glucose 131 H 157 H (70-105) mg/dL Ferritin (10.0-200.0) ng/mL Lactate Dehydrogenase (91-180) units/L C-Reactive Protein (0.00-1.30) mg/dL Coronavirus (PCR) Positive A (Negative) 01/18/21 01/18/21 01/18/21 Range/Units 09:49 09:49 09:49 D-Dimer 364.84 H (0-234) ng/mlDDU POC Glucose (70-105) mg/dL Ferritin 756.7 H (10.0-200.0) ng/mL Lactate Dehydrogenase 307 H (91-180) units/L C-Reactive Protein 5.30 H (0.00-1.30) mg/dL Coronavirus (PCR) (Negative) 01/18/21 Range/Units 11:32 D-Dimer (0-234) ng/mlDDU POC Glucose 157 H (70-105) mg/dL Ferritin (10.0-200.0) ng/mL Lactate Dehydrogenase (91-180) units/L C-Reactive Protein (0.00-1.30) mg/dL Coronavirus (PCR) (Negative) Assessment and Plan Cultures: Blood culture 01/16/2021 no growth today SARS CoV2 PCR positive Assessment: 71 years old female with history of hypertension, diabetes mellitus, GERD, hyperlipidemia, osteoarthritis, admitted 01/16/2021 secondary to a week history of generalized malaise, body aches, cough, nausea, loss of sense of smell several episodes of vomiting, and shortness of breath: #COVID-19 infection: Inflammatory markers elevated. Chest x-ray chest x-ray no obvious consolidations. Procalcitonin is low. Doubt bacterial infection. #Transient hypoxia: Down to 91%. Patient on room air. Recommendations: -Continue dexamethasone 6 mg IV/PO daily for 10 days -No indication for remdesivir as patient is no sustained hypoxia requiring O2>2L -If patient is placed O2>2L please start remdesivir -6-minute walking as feasible -Monitor inflammatory markers - ferritin, Ddimer, CRP, LDH -Continue anticoagulation per System Protocol -Stop ceftriaxone procalcitonin <0.25 ng/mL All laboratory, cultures and imaging were reviewed. Discussed with attending. Will follow Liza Bustillo MD Infectious Diseases [facility] M [phone] O [phone]
[2021-01-18] MEDS: cefTRIAXone/NS 2 GM/100 ML 2 GM/100 ML BAG IV SCH (14:31)
[2021-01-18] MEDS: ACETAMINOPHEN 325 MG TAB PO PRN (20:23)
[2021-01-18] MEDS ORDERED: ENOXAPARIN 40 MG/0.4 ML INJ SUB-Q SCH (22:00)
[2021-01-19] MEDS: glipiZIDE 5 MG TAB PO SCH (08:49)
[2021-01-19] MEDS: INSULIN LISPRO 100 UNIT/ML SUB-Q SCH ×2 (08:49→14:03)
[2021-01-19] MEDS: DEXAMETHASONE 4 MG TAB PO SCH (10:02)
[2021-01-19] MEDS: hydroCHLOROthiazide 12.5 MG CAP PO SCH (10:02)
[2021-01-19] MEDS: PANTOPRAZOLE 40 MG TAB PO SCH (10:03)
[2021-01-19] MEDS: CHOLECALCIFEROL (VIT D3) 1000 UNIT (25 mcg) TAB PO SCH (10:03)
[2021-01-19] MEDS: LISINOPRIL 20 MG TAB PO SCH (10:03)
[2021-01-19] MEDS: amLODIPine 5 MG TAB PO SCH (10:03)
[2021-01-19] MEDS: atenoloL 50 MG TAB PO SCH (10:03)
[2021-01-19] MEDS: tiZANidine TAB 4 MG TAB PO SCH (10:03)
[2021-01-19] MEDS: ASCORBIC ACID 500 MG TAB PO SCH (10:03)
[2021-01-19] MEDS: ZINC SULFATE 220 MG CAP PO SCH (10:05)
--- NOTE | 2021-01-19 10:40 | Progress Note ---
Assessment and Plan Assessment and plan: #Acute hypoxic respiratory failure Continue oxygen supplementation #COVID-19 infection Dexamethasone Vitamin C and zinc ID on board Monitor sats - oxygen dropped to 86% with ambulation - defer initiation of remdesivr to ID Trend inflammatory markers. #Diabetes mellitus Continue Metformin Added glipizide as patient refuses insulin. Continue to monitor blood glucose #Hypertension Continue blood pressure medication #GERD PPI #No UTI as previously thought. Procalcitonin negative #DVT prophylaxis-Lovenox History Interval history: 01/17. Patient seen and examined at bedside this morning. Has no complaints. Not on oxygen. Patient apparently desaturated in the ED. COVID-19 test pending. 01/18. Patient seen and examined at bedside this morning. COVID-19 test came out positive yesterday. Her oxygen saturation at rest is 91%. She has some dyspnea on exertion. ID consulted for evaluation for remdesivir. 01/19. Hypoxic with ambulation. Continue steroids. ID on board. Hospitalist Physical - Physical exam Narrative exam: VITAL SIGNS: Reviewed. GENERAL: Awake HEAD: No signs of head trauma. EYES: Pupils are equal. Extraocular motions intact. MOUTH: Oropharynx is normal. NECK: No adenopathy, no JVD. CHEST: Chest with diminished breath sounds bilaterally. No wheezes, rales, or rhonchi. CARDIAC: normal S1 and S2, without murmurs, gallops, or rubs. ABDOMEN: Soft, non tender and non distended. No rebound or guarding, and no masses palpated. Bowel Sounds normal. MUSCULOSKELETAL: No edema NEUROLOGIC EXAM: Alert and oriented x3. No focal neurologic deficits SKIN: No obvious lesions - Constitutional Vitals: Temp Pulse Resp BP Pulse Ox 98.0 F 54 L 16 119/71 90 01/19/21 05:35 01/19/21 05:35 01/19/21 05:35 01/19/21 05:35 01/19/21 05:35 Results - Labs CBC & Chem 7: 01/17/21 07:07 01/17/21 07:07 Labs: Laboratory Last Values WBC 5.9 K/mm3 (4.5-11.0) 01/17/21 07:07 RBC 4.76 M/mm3 (3.65-5.03) 01/17/21 07:07 Hgb 13.5 gm/dl (10.1-14.3) 01/17/21 07:07 Hct 41.2 % (30.3-42.9) 01/17/21 07:07 MCV 87 fl (79-97) 01/17/21 07:07 MCH 28 pg (28-32) 01/17/21 07:07 MCHC 33 % (30-34) 01/17/21 07:07 RDW 13.6 % (13.2-15.2) 01/17/21 07:07 Plt Count 172 K/mm3 (140-440) 01/17/21 07:07 Lymph % (Auto) 9.1 % (13.4-35.0) L 01/17/21 07:07 Price % (Auto) 3.4 % (0.0-7.3) 01/17/21 07:07 Eos % (Auto) 0.0 % (0.0-4.3) 01/17/21 07:07 Baso % (Auto) 0.5 % (0.0-1.8) 01/17/21 07:07 Lymph # (Auto) 0.5 K/mm3 (1.2-5.4) L 01/17/21 07:07 Price # (Auto) 0.2 K/mm3 (0.0-0.8) 01/17/21 07:07 Eos # (Auto) 0.0 K/mm3 (0.0-0.4) 01/17/21 07:07 Baso # (Auto) 0.0 K/mm3 (0.0-0.1) 01/17/21 07:07 Seg Neutrophils % 87.0 % (40.0-70.0) H 01/17/21 07:07 Seg Neutrophils # 5.2 K/mm3 (1.8-7.7) 01/17/21 07:07 D-Dimer 364.84 ng/mlDDU (0-234) H 01/18/21 09:49 Sodium 137 mmol/L (137-145) D 01/17/21 07:07 Potassium 3.9 mmol/L (3.6-5.0) 01/17/21 07:07 Chloride 100.6 mmol/L (98-107) 01/17/21 07:07 Carbon Dioxide 26 mmol/L (22-30) 01/17/21 07:07 Anion Gap 14 mmol/L 01/17/21 07:07 BUN 16 mg/dL (7-17) 01/17/21 07:07 Creatinine 0.6 mg/dL (0.6-1.2) 01/17/21 07:07 Estimated GFR > 60 ml/min 01/17/21 07:07 BUN/Creatinine Ratio 27 % 01/17/21 07:07 Glucose 191 mg/dL (65-100) H 01/17/21 07:07 POC Glucose 183 mg/dL (70-105) H 01/18/21 22:28 Calcium 8.8 mg/dL (8.4-10.2) 01/17/21 07:07 Ferritin 756.7 ng/mL (10.0-200.0) H 01/18/21 09:49 Total Bilirubin 0.50 mg/dL (0.1-1.2) 01/16/21 12:35 Direct Bilirubin < 0.2 mg/dL (0-0.2) 01/16/21 12:35 Indirect Bilirubin 0.3 mg/dL 01/16/21 12:35 AST 32 units/L (5-40) 01/16/21 12:35 ALT 16 units/L (7-56) 01/16/21 12:35 Alkaline Phosphatase 52 units/L (35-129) 01/16/21 12:35 Lactate Dehydrogenase 307 units/L (91-180) H 01/18/21 09:49 C-Reactive Protein 5.30 mg/dL (0.00-1.30) H 01/18/21 09:49 Total Protein 6.8 g/dL (6.3-8.2) 01/16/21 12:35 Albumin 3.4 g/dL (3.9-5) L 01/16/21 12:35 Albumin/Globulin Ratio 1.0 % 01/16/21 12:35 Procalcitonin < 0.05 ng/mL (<0.15) 01/18/21 09:49 Urine Color Yellow (Yellow) 01/16/21 12:35 Urine Turbidity Slightly-cloudy (Clear) 01/16/21 12:35 Urine pH 5.0 (5.0-7.0) 01/16/21 12:35 Ur Specific [place] 1.019 (1.003-1.030) 01/16/21 12:35 Urine Protein 30 mg/dl mg/dL (Negative) 01/16/21 12:35 Urine Glucose (UA) Neg mg/dL (Negative) 01/16/21 12:35 Urine Ketones 20 mg/dL (Negative) 01/16/21 12:35 Urine Blood Sm (Negative) 01/16/21 12:35 Urine Nitrite Neg (Negative) 01/16/21 12:35 Ur Reducing Substances Not Reportable 01/16/21 12:35 Urine Bilirubin Neg (Negative) 01/16/21 12:35 Urine Ictotest Not Reportable 01/16/21 12:35 Urine Urobilinogen 2.0 mg/dL (<2.0) 01/16/21 12:35 Ur Leukocyte Esterase Tr (Negative) 01/16/21 12:35 Urine WBC (Auto) 7.0 /HPF (0.0-6.0) H 01/16/21 12:35 Urine RBC (Auto) 4.0 /HPF (0.0-6.0) 01/16/21 12:35 U Epithel Cells (Auto) 7.0 /HPF (0-13.0) 01/16/21 12:35 Urine Mucus Few /HPF 01/16/21 12:35 Coronavirus (PCR) Positive (Negative) A 01/17/21 Unknown Microbiology: Microbiology 01/16/21 15:54 Peripheral/Venous Blood Culture - Preliminary NO GROWTH AFTER 48 HOURS 01/16/21 15:57 Peripheral/Venous Blood Culture - Preliminary NO GROWTH AFTER 48 HOURS Ariza/IV: Voiding Method Toilet Active Medications - Current Medications Current Medications: Generic Name Dose Route Start Last Admin Trade Name Freq PRN Reason Stop Dose Admin Acetaminophen 650 mg 01/16/21 14:48 01/18/21 20:23 Acetaminophen 325 Mg Tab PO 650 mg Q4H PRN Administration Pain MILD(1-3)/Fever >100.5/HILLIARD Albuterol 2.5 mg 01/16/21 14:48 Albuterol 2.5 Mg/3 Ml Nebu IH Q4HRT PRN Shortness Of Breath Amlodipine Besylate 5 mg 01/17/21 10:00 01/19/21 10:03 Amlodipine 5 Mg Tab PO 5 mg DAILY ADRIANA Administration Ascorbic Acid 500 mg 01/16/21 22:00 01/19/21 10:03 Ascorbic Acid 500 Mg Tab PO 500 mg BID ADRIANA Administration Atenolol 50 mg 01/17/21 10:00 01/19/21 10:03 Atenolol 50 Mg Tab PO 50 mg DAILY ADRIANA Administration Atorvastatin Calcium 20 mg 01/16/21 22:00 01/18/21 23:24 Atorvastatin 20 Mg Tab PO 20 mg QHS ADRIANA Administration Cholecalciferol 1,000 unit 01/17/21 10:00 01/19/21 10:03 Cholecalciferol (Vit D3) 1000 Unit (25 Mcg) Tab PO 1,000 unit QDAY ADRIANA Administration Dexamethasone 6 mg 01/18/21 10:00 01/19/21 10:02 Dexamethasone 4 Mg Tab PO 01/27/21 10:01 6 mg Q24HR ADRIANA Administration Dextrose 50 ml 01/16/21 17:13 Dextrose 50% In Water (25gm) 50 Ml Syringe IV Q30MIN PRN Hypoglycemia Protocol Enoxaparin Sodium 40 mg 01/18/21 22:00 01/18/21 23:25 Enoxaparin 40 Mg/0.4 Ml Inj SUB-Q 40 mg QDAY@2200 ADRIANA Administration Protocol Glipizide 5 mg 01/17/21 17:00 01/19/21 08:49 Glipizide 5 Mg Tab PO 5 mg BIDDIAB ADRIANA Administration Hydrochlorothiazide 12.5 mg 01/17/21 10:00 01/19/21 10:02 Hydrochlorothiazide 12.5 Mg Cap PO 12.5 mg QDAY ADRIANA Administration Insulin Human Lispro 0 unit 01/16/21 22:00 01/19/21 08:49 Insulin Lispro 100 Unit/Ml SUB-Q 2 unit ACHS ADRIANA Administration Protocol Lisinopril 20 mg 01/17/21 10:00 01/19/21 10:03 Lisinopril 20 Mg Tab PO 20 mg QDAY ARDIANA Administration Ondansetron HCl 4 mg 01/16/21 14:48 Ondansetron 4 Mg/2 Ml Inj IV Q8H PRN Nausea And Vomiting Pantoprazole Sodium 40 mg 01/17/21 10:00 01/19/21 10:03 Pantoprazole 40 Mg Tab PO 40 mg QDAY ADRIANA Administration Sodium Chloride 10 ml 01/16/21 22:00 01/19/21 10:03 Sodium Chloride 0.9% 10 Ml Flush Syringe IV 10 ml BID ADRIANA Administration Sodium Chloride 10 ml 01/16/21 14:48 Sodium Chloride 0.9% 10 Ml Flush Syringe IV PRN PRN LINE FLUSH Tizanidine HCl 4 mg 01/16/21 22:00 01/19/21 10:03 Tizanidine Tab 4 Mg Tab PO 4 mg BID ADRIANA Administration Zinc Sulfate 220 mg 01/16/21 22:00 01/19/21 10:05 Zinc Sulfate 220 Mg Cap PO 220 mg BID ADRIANA Administration
--- NOTE | 2021-01-19 12:58 | Progress Note ---
Assessment and Plan Cultures: Blood culture 01/16/2021 no growth today SARS CoV2 PCR positive Assessment: 71 years old female with history of hypertension, diabetes mellitus, GERD, hyperlipidemia, osteoarthritis, admitted 01/16/2021 secondary to a week history of generalized malaise, body aches, cough, nausea, loss of sense of smell several episodes of vomiting, and shortness of breath: #COVID-19 infection: Inflammatory markers elevated. D-dimer improving, ferritin up. chest x-ray chest x-ray no obvious consolidations. Procalcitonin is low. Doubt bacterial infection. #Transient hypoxia: Down to 90%. 6-minute walking test dropped to 87. Remains on room air Recommendations: -woods manager arranging home O2, patient currently on room air -Continue dexamethasone 6 mg IV/PO daily for 10 days -No indication for remdesivir as patient is no sustained hypoxia requiring O2>2L -If patient is placed O2>2L please start remdesivir -Monitor inflammatory markers - ferritin, Ddimer, CRP, LDH -Continue anticoagulation per System Protocol Will follow Liza Bustillo MD Infectious Diseases [employer] [facility] M [phone] O [phone] Subjective Date of service: 01/19/21 Objective - Constitutional Vitals: Vital Signs Temp Pulse Resp BP Pulse Ox 98.0 F 54 L 16 119/71 90 01/19/21 05:35 01/19/21 05:35 01/19/21 05:35 01/19/21 05:35 01/19/21 05:35 Temperature -Last 24 Hours Temperature 98.0 F Temperature 97.7 F Temperature 99.2 F - Labs CBC & Chem 7: 01/17/21 07:07 01/17/21 07:07 Labs: Abnormal lab results 01/18/21 01/18/21 01/19/21 Range/Units 16:56 22:28 07:22 POC Glucose 241 H 183 H 161 H (70-105) mg/dL 01/19/21 Range/Units 11:08 POC Glucose 151 H (70-105) mg/dL
[2021-01-19 13:06] VITALS: BP 105/68
--- NOTE | 2021-01-19 13:42 | Discharge Summary ---
Providers - Providers Date of Admission: 01/17/21 11:19 Date of discharge: 01/19/21 Attending physician: IRIS VALDEZ 01/17/21 18:06 Physical Therapy Evaluation and Treat [CONS] Routine Comment: Reason For Exam: Assess for the need for home PT due to weakness 01/18/21 09:32 Consult to Physician [CONS] Routine Comment: Consulting Provider: BENJAMIN BATES Physician Instructions: Reason For Exam: COVID 19 pna 01/18/21 09:49 Occupational Therapy Evaluate and Treat [CONS] Routine Comment: Reason For Exam: ADL Hospitalization Condition: Stable Hospital course: 70 YO Female with HTN, DM, GERD, HLD, OA presents to ED for evaluation. Pt reports "I feel bad". Patient states that she has experienced body aches, dry cough, nausea, several episodes of vomiting, loss of sense of smell, loss of sense of taste, shortness of breath, subjective fever over the past 1 week with persistent symptoms over the same timeframe. EMS notified and upon arrival the patient was found to be in distress and subsequently transported to [facility] for further care and evaluation of the aforementioned symptoms. The patient was seen and evaluated in the emergency department. All lab and imaging studies reviewed. Patient complained of shortness of breath and was found to have a pulse oximetry in the 90s however the patient underwent a 6-minute walk on room air and was found to have dyspnea with increased use of accessory muscles to breathe. The patient was found to have a pulse oximetry of 89% which is consistent with acute hypoxemic respiratory failure. Patient also found to have urinary tract infection, hyponatremia. Patient admitted to medical floor and initiated on coronavirus protocol. Patient denies chills, chest pain, palpitations, skin rash, trauma, falls. Patient reports recent ill contact with her daughter who has similar symptoms. No prior admission for review. All medication listed at time of admission has been reconciled. Advanced care planning conducted in ED. Hospital course 01/17. Patient seen and examined at bedside this morning. Has no complaints. Not on oxygen. Patient apparently desaturated in the ED. COVID-19 test pending. Remains on steroids. 01/18. Patient seen and examined at bedside this morning. COVID-19 test came out positive yesterday. Her oxygen saturation at rest is 91%. She has some dy spnea on exertion. ID consulted for evaluation for remdesivir. 01/19. Hypoxic with ambulation. Continue steroids. ID on board. She is not a candidate for remdesivir as per ID. She has been provided oxygen and will be discharged home on dexamethasone to complete total of 10 days. Disposition: DC-01 TO HOME OR SELFCARE Final Discharge Diagnosis (Prints w/discharge instructions): COVID-19 pneumonia - Discharge Diagnoses (1) Acute hypoxemic respiratory failure Status: Acute (2) COVID-19 Status: Acute (3) Diabetes Status: Acute Core Measure Documentation - Palliative Care Palliative Care/ Comfort Measures: Not Applicable - Core Measures Any of the following diagnoses?: none Exam - Physical Exam Narrative exam: VITAL SIGNS: Reviewed. GENERAL: Awake HEAD: No signs of head trauma. EYES: Pupils are equal. Extraocular motions intact. MOUTH: Oropharynx is normal. NECK: No adenopathy, no JVD. CHEST: Chest with diminished breath sounds bilaterally. No wheezes, rales, or rhonchi. CARDIAC: normal S1 and S2, without murmurs, gallops, or rubs. ABDOMEN: Soft, non tender and non distended. No rebound or guarding, and no masses palpated. Bowel Sounds normal. MUSCULOSKELETAL: No edema NEUROLOGIC EXAM: Alert and oriented x3. No focal neurologic deficits SKIN: No obvious lesions - Constitutional Vitals: Temp Pulse Resp BP Pulse Ox 98.6 F 65 16 105/68 90 01/19/21 12:24 01/19/21 12:24 01/19/21 12:24 01/19/21 12:24 01/19/21 12:24 Plan Additional Instructions: Continue dexamethasone for 7 more days. Follow up with PCP in 2 weeks Follow up with: EBEN HOLLAND [Other] - 7 Days Prescriptions: dexAMETHasone [Decadron] 6 mg PO Q24HR 7 Days tablet Apixaban [Eliquis] 2.5 mg PO BID #14 tablet Ascorbic Acid [Vitamin C] 500 mg PO BID #28 tablet Zinc Sulfate 220 mg PO DAILY #14 capsule
== END 2021-01-19 18:49 | disposition home or self-care (01) ==
LOC: ED 11:36 → INTOOBSV 14:48 → UNDOADMOB 14:48 → 3A 14:48
PROVIDERS: ADMIT Internal Medicine; ATTEND Internal Medicine
DX: U07.1 COVID-19 (principal); J96.01 Acute respiratory failure with hypoxia; I10 Essential (primary) hypertension; E87.1 Hypo-osmolality and hyponatremia; E11.9 Type 2 diabetes mellitus without complications; K21.9 Gastro-esophageal reflux disease without esophagitis; N39.0 Urinary tract infection, site not specified; M19.90 Unspecified osteoarthritis, unspecified site; E78.00 Pure hypercholesterolemia, unspecified; Z98.890 Other specified postprocedural states; Z79.84 Long term (current) use of oral hypoglycemic drugs
CPT/HCPCS: 36415; 71045; 80048; 80076; 81001; 82728; 82947; 82962; 83615; 84145; 85025; 85379; 86140; 87040; 96361; 96365; 96366; 96368; 96372; 96375; 96376; 97116; 97162; 97165; 97530; 97535; 99284; A9270; G0378; J0456; J0696; J1644; J1650; J2920; J7030; J8540; U0003; J1815